=== PATIENT | female | born 1965 | race Two or more races ===

== ENCOUNTER 2023-11-03 05:25 | Day surgery (SDC) | payer OTHER ==
[2023-10-25 10:13] LABS: HEMATOCRIT 37.9 % (36.0-45.00); HEMOGLOBIN 12.6 g/dL (12.0-15.00); MEAN CELL VOLUME 89.1 fL (80.00-100.00); MEAN CORPUSCULAR HEMOGLOBIN 29.6 pg (27.00-32.0); MEAN CORPUSCULAR HGB CONC 33.2 g/dl (32.0-36.0); PLATELET COUNT 340 K/uL (150-450); RED BLOOD COUNT 4.25 M/uL (4.00-6.00); RED CELL DISTRIBUTION WIDTH 14.2 % (11.5-14.5)
[2023-10-25 10:18] LABS: PH,URINE 5.5 (5.0-8.0); URINE APPEARANCE Clear; URINE BILIRRUBIN Negative (NEGATIVE); URINE BLOOD Small; URINE COLOR Yellow; URINE GLUCOSE Negative (NEGATIVE); URINE LEUKOCYTE Small; URINE NITRATE Negative; URINE PROTEIN Negative (NEGATIVE); URINE UROBILINOGEN 0.2 E.U./dl
[2023-10-25 10:23] LABS: URINE BACTERIA 817.7 uL (0.0-1933); URINE EPITHELIAL CELLS 25.1 uL (0.0-38.8); URINE WBC 47.6 uL (0.0-23.2)
[2023-10-25 10:40] LABS: ALBUMIN 4.3 gm/dL (3.4-5.0); BILIRUBIN TOTAL 0.41 mg/dL (0.3-1.2); CALCIUM 10.8 mg/dL (8.5-10.1); CREATININE SERUM 0.71 mg/dL (0.55-1.02); GFR 85.46; POTASSIUM 4.71 mEq/L (3.5-5.1); TOTAL PROTEIN 8.3 gm/dL (6.4-8.2)
[2023-10-25 10:45] LABS: INR 1.06; PARTIAL THROMBOPLASTIN TIME 28.5 SECONDS (22.0-34.0); PROTHROMBIN TIME 11.1 SECONDS (9.0-11.5)
[2023-11-03] MEDS ORDERED: CLINDAMYCIN PHOSPHATE 150 MG/ML (900mg) ONE (11:39)
[2023-11-03] MEDS ORDERED: CEFAZOLIN SODIUM 1,000 MG VIAL ONE (13:23)
[2023-11-03] MEDS ORDERED: BUPIVACAINE HCL/PF 0.5% 30ML ML ONE (13:23)
[2023-11-03] MEDS ORDERED: VANCOMYCIN HCL 1,000 MG VIAL ONE (13:24)
[2023-11-03] MEDS ORDERED: POVIDONE-IODINE 118 ML BOTT TOP ONE ×4 (13:24→14:45)
[2023-11-03] MEDS ORDERED: POVIDONE-IODINE SCRUB 118 ML BOTT TOP ONE ×2 (13:26→14:45)
[2023-11-03] MEDS ORDERED: EPINEPHRINE HCL/PF 1 MG/ML AMPUL ONE (13:50)
[2023-11-03] MEDS ORDERED: BUPIVACAINE HCL/PF 0.5% 5MG/ML VIAL IJ ONE (14:45)
[2023-11-03] MEDS ORDERED: EPINEPHRINE HCL/PF 1 MG/ML AMPUL IR ONE (14:45)
[2023-11-03] MEDS ORDERED: CEFAZOLIN SODIUM 1,000 MG VIAL IJ ONE (14:45)
[2023-11-03] MEDS ORDERED: CLINDAMYCIN PHOSPHATE 150 MG/ML (900mg) IV ONE (14:45)
[2023-11-03] MEDS ORDERED: VANCOMYCIN HCL 1,000 MG VIAL IR ONE (14:45)
== END 2023-11-03 19:40 | disposition home or self-care (01) ==
LOC: CIR.AMB 05:25
PROVIDERS: ATTEND Surgery
DX: C50.812 Malignant neoplasm of overlapping sites of left female breast (principal); N62 Hypertrophy of breast; R59.0 Localized enlarged lymph nodes; N64.89 Other specified disorders of breast; N65.1 Disproportion of reconstructed breast; I10 Essential (primary) hypertension

== ENCOUNTER 2023-12-26 08:32 | Outpatient (CLI) | payer OTHER | END 2023-12-26 08:34 | disposition home or self-care (01) | LOC: RX STUDY 08:32 | PROVIDERS: ATTEND Internal Medicine Gastroenterology | DX: R13.10 Dysphagia, unspecified (principal) ==